=== PATIENT | male | born 1985 | race Caucasian/White ===

== ENCOUNTER → 2017-10-14 | Outpatient (CLI) | payer OTHER ==
[~2017-10-14] VITALS: Ht 170.2 cm; Wt 125.0 kg
[2017-10-14 16:16] VITALS: BP 138/81; PULSE 105; BMI 27.5
[2017-10-14 16:30] VITALS: BP 161/83; PULSE 76; Ht 170.2 cm; Wt 125.0 kg
== END | disposition home or self-care (01) ==
LOC: C.NEUR 15:15
PROVIDERS: ATTEND Internal Medicine Pulmonary Disease
DX: R06.83 Snoring (principal); R40.0 Somnolence; G47.8 Other sleep disorders; J35.1 Hypertrophy of tonsils; J30.9 Allergic rhinitis, unspecified; R06.81 Apnea, not elsewhere classified

== ENCOUNTER → 2017-10-31 | Outpatient (CLI) | payer OTHER ==
--- NOTE | 2017-11-01 05:27 | PAP/PSG TECHNICIAN REPORT ---
[facility] Saw Straightener Polysomnogram Report Study name: None Report date: 11/01/2017 Study date: 10/31/2017 Referring Physician: Von Shaw M.D. Name: NAZIA LOCKHART Interpreting Physician: Von Shaw M.D. Date of : 1985 Saw Straightener: KAMAR Tripp. Sex: Male Age: 32 StudyType: PSG Weight: 210 lbs Height: 32 years, Height 6' 1.5" Neck Circum: 17inches BMI: 27.33 Medications: Loratadine 10mg, Pseudoephedrine HCl ER 120mg Patient History Study started on room air with no ETCO2 monitoring in room #8. 32 yr old male here tonight for a diagnostic psg. He has a history of EDS, loud snoring and witnessed apnea. His ESS=7/24. Neck circ=17inches. He said that he is not interested in having a split night study if he qualifies because of his insurance. Parameters Monitored NPSG: E1-M2, E2-M1, Fp1-M2, Fp2-M1, F3-M2, F4-M2, F4-M1, C3-M2, C4-M2, C4-M1, O1-M2, O2-M2, O2-M1, T3-M2, T4-M1, P3-M2, P4-M1, CHIN1, CHIN2, HR, EKG, Legs, PFLOW, SNOR, FLOW, CFLOW, Tidal Volume, THOR, ABDO, SpO2, PLTH, CPRESS, ETCO2 Wave, ETCO2, pH Sleep Architecture Sleep Stages Time at Lights Off 10:14:05 PM STAGES Time (min.) TST (%) Time at Lights On 5:10:05 AM Wake 57.5 -- Total Recording Time (TRT) 416.00 min. N1 42.0 12 Total Sleep Period (TSP) 395.0 min. N2 217.5 61 Total Sleep Time (TST) 358.5min. N3 36.0 10 Awake Time 57.5 min. REM 63.0 18 Wake after Sleep Onset 36.5 min. Sleep Efficiency (SE) 86 % Sleep Onset Latency (ESTHER) 21.0 min. Number of Stage 1 Shifts None Awakenings 14 Stage Changes 119 Number of REM periods 12 REM 63.0 18 REM Latency 78.0 min. NREM 295.5 82 Body Position Analysis Supine Right Left Side Prone Vertical Total Sleep Time (min.) 246.5 110.0 39.9 149.90 0.0 0.0 Total Sleep Time (%) 58% 31% 11% 42 0% N/A% Total Sleep Time REM (min.) 32.0 31.0 0.0 None 0.0 0.0 Total Sleep Time NREM (min.) 176.6 79.0 39.9 None 0.0 0.0 Intermittent Wake (min.) 37.9 15.0 4.6 None 0.0 0.0 Total Sleep Period (%) 58% None None None None None Arousals Myoclonus (PLM) * Events Count Index Events Count Index Spontaneous 10 2 Events Awake (PLMW) 72 75.1 Respiratory 96 16.9 Events Asleep w/ Arousal (PLMA) 6 1.0 PLM 5 1 Events Asleep w/o Arousal (PLMS) 164 27.4 Snoring 1 0 Total Asleep 170 28.5 Total 112 19 Total 242 35 Respiratory Analysis * CA OA MA CH H RERA Total Count 3 223 47 0 120 0 393 Index 0.5 37.3 7.9 0 20.1 0 65.8 Mean Duration 28.0 35.6 39.7 0.00 39.9 0.0 37.4 Longest Duration 35.7 79.2 57.5 0.00 57.5 0.0 116.0 Respiratory Event Summary Total Supine ~Supine Right Left Prone REM NREM Apneas Count 273 224 49 49 0 N/A 34 239 Index 45.7 64 20 26.7 0.0 N/A 32 49 Hypopneas (4% Desat) Count 120 48 72 51 21 N/A 31 89 Index 20.1 13.8 29 27.8 31.6 N/A 29.5 18.1 Apneas & All Hypopneas Count 393 272 121 100 21 N/A 65 328 Index 65.8 78 48 55 32 N/A 61.9 66.6 Respiratory Events (Oiler Bander+All Hyp+RERA) Count 393 272 121 100 21 N/A 65 328 Index 65.8 78 48 54.5 31.6 N/A 61.9 66.6 Respiratory Related Arousal Count 96 272 26 20 6 N/A 14 87 Index 16.9 22 10 11 9 N/A 13 18 Snoring Analysis Supine Right Left Prone REM NREM Total Snore duration 22.2 min Snores count 456 272 35 N/A 145 618 763 Snore mean duration 1.7 Sec Snores index 131 148 53 N/A 138.1 125.5 127.7 TST with snoring (%) 6.2% Desaturation Event Summary: Minimum %SpO2 Event Count Mean/Min/Max Duration(sec.) Desaturation Index % Time In Bed > 90 383 30.4 / 6.0 / 59.0 148.0 37.7 86 - 90 74 24.1 / 6.0 / 51.8 31.3 34.5 81 - 85 4 20.9 / 12.3 / 36.3 2.9 19.9 76 - 80 0 N/A 0.0 7.3 71 - 75 0 N/A 0.0 0.5 66 - 70 0 N/A 0.0 0.0 61 - 65 0 N/A 0.0 0.0 56 - 60 0 N/A 0.0 0.0 51 - 55 0 N/A 0.0 0.0 < 50 0 N/A 0.0 0.0 Total REM NREM Awake <50% 0.0 min. 0.0 min. 0.0 min. 0.0 min. 51 - 60% 0.0 min. 0.0 min. 0.0 min. 0.0 min. 61 - 70% 0.0 min. 0.0 min. 0.0 min. 0.0 min. 71 - 80% 32.5 min. 6.8 min. 24.5 min. 1.2 min. 81 - 90% 223.7 min. 30.5 min. 180.9 min. 12.3 min. 91 - 100% 155.3 min. 25.7 min. 88.6 min. 41.0 min. Average 88 88 88 91 Minimum SpO2 71 71 72 73 Desaturation Event Index 59.3 64.8 64.0 31.3 # Desat. Events below 89% 389 63 307 19 Time(%) with Saturation below 89% 48.4 7.1 39.7 1.6 Time(min.) with Saturation below 89% 199.2 29.2 163.5 6.5 Time (mins) REM (mins) NREM (mins) % of TST SpO2 Below 90% 375 64 N311 61.2 SpO2 Below 88% 190 0 0 46 Heart Rate Analysis Min (bpm) Max (bpm) Average (bpm) Awake 68 155 92 NREM 60 127 82 REM 61 104 84 Overall 60 127 83 Supplemental O2 Values Minimum O2 level: None Value Start Time End Time Saw Straightener Comments Mr. Lockhart slept in the right, left and supine positions. No cardiac arrhythmia noted. PLM's were noted. No bruxism noted. Snoring was noted and scored as a 5++ on a scale of 1 through 5. (0=no snoring, 5=snoring loud enough to be heard through a closed door or down the [address]). He did not use the restroom during the night. He stated that he slept about the same as usual. He was asked at 12:55am if he was interested in trying cpap and he again said not tonight and that he had to check with his insurance first. The final report will be interpreted and signed by a sleep physician. The completed physician report will then be placed in the patient medical record. Therapy (cm H2O) 0 TIB (min.) 416.0 TST (min.) 358.5 Sleep Onset (min.) 21.0 REM Onset From Sleep (min.) 78.0 Sleep Efficiency % 86 Wakefulness (%) 14 Wakefulness (min.) 57.5 NREM 1 (%) 12 NREM 1 (min.) 42.0 NREM 2 (%) 61 NREM 2 (min.) 217.5 NREM 3 (%) 10 NREM 3 (min.) 36.0 REM (%) 18 REM (min.) 63.0 # Arousals 112 Arousal Index 19 # Snore 763 Snore Index 127.7 AHI 65.8 AHI Supine 78 AHI Non-Supine 48 NREM AHI 66.6 REM AHI 61.9 RDI 65.8 # Obstructive Apnea 223 # Central Apnea 3 # Mixed Apnea 47 # Hypopneas 120 RERAs 0 Total Respiratory Events 397 Time Below SpO2 89% (min.) 192.7 Mean NREM SpO2 (%) 88 Mean REM SpO2 (%) 88 Mean Sleep SpO2 (%) 88 Min NREM SpO2 (%) 72 Min REM SpO2 (%) 71 Position Supine (min.) 246.5 Position Non-supine (min.) 149.9 LM Index Sleep 28.5 LM Index NREM 30.5 LM Index REM 19.0 Mean Heart Rate (bpm) 83 Min Heart Rate (bpm) 60
--- NOTE | 2017-11-04 09:54 | POLYSOMNOGRAPH REPORT ---
CLINICAL DATA: A 32-year-old male with BMI of 27.3 referred by myself and Dr. Mckeon with a history of loud snoring, witnessed apnea, and excessive daytime sleepiness. His Cisco sleepiness score is 7/24. SLEEP ARCHITECTURE: Total sleep period was 395 minutes. Total sleep time was 358.5 minutes divided between 295.5 minutes of non-REM sleep and 63 minutes of REM sleep. Sleep onset latency was 21 minutes. REM latency was 78 minutes. Sleep efficiency was 86%. Wake after sleep onset was 36.5 minutes. Sleep consisted of stage N1 12%, stage N2 61%, stage N3 10%, and REM 18%. AROUSAL DATA: 112 arousals were recorded for an index of 19 per hour. 96 were due to respiratory events. PLM DATA: 170 limb movements during sleep were noted for an index of 28.5 per hour with arousal index of 1 per hour. RESPIRATORY DATA: Very severe sleep apnea was documented. The AHI was 65.8. There were 3 central, 223 obstructive, and 47 mixed apneic episodes. The longest duration of apnea was 79.2 seconds. There were 120 hypopneic episodes with the longest duration of hypopnea being 57.5 seconds. OXIMETRY DATA: Nocturnal hypoxemia was seen; oxygen thaddeus was 71% during REM. Mean saturation was 88%. Time below 88% was 190 minutes. EKG: Heart rates ranged from 60-127 beats per minute. No arrhythmias were noted. TELEGRAPHIC TYPEWRITER OPERATOR'S COMMENTS: The patient slept in the right, left, and supine positions. Snoring was severe, rated 5+ on a scale of 1-5. He was asked to 12:55 a.m. if he was interested in trying CPAP as a split night study and he indicated that he was not. He was concerned about insurance coverage. IMPRESSION: Very severe sleep apnea/hypopnea with an AHI of 65.8 with severe nocturnal hypoxemia. RECOMMENDATIONS: The patient should be considered for a repeat sleep study with CPAP or use of auto-CPAP. CANDIDO
== END | disposition home or self-care (01) ==
LOC: C.NEUR 21:00
PROVIDERS: ATTEND Internal Medicine Pulmonary Disease
DX: G47.30 Sleep apnea, unspecified (principal)